=== PATIENT | female | born 1995 | race Caucasian/White ===

== ENCOUNTER 2023-09-29 20:17 | Emergency (ER) | payer MEDICAID, SELFPAY ==
--- NOTE | 2023-09-29 20:18 | ECG_ITS ---
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 Measurements Intervals Lipan Rate: 130 P: 64 NE: 133 QRS: 55 QRSD: 74 T: -19 QT: 333 QTc: 491 Interpretive Statements SINUS TACHYCARDIA NONSPECIFIC ST & T-WAVE ABNORMALITY No previous ECG available for comparison Electronically Signed On 09-30-2023 6:23:47 CDT by Miguel Ferreira M.D. [id number]
[2023-09-29 20:19] VITALS: BP 109/83; PULSE 123; RESP 24; TEMP 37.1; O2SAT 98
[2023-09-29 20:25] VITALS: BP 109/83
--- NOTE | 2023-09-29 20:40 | ED_ITS ---
HPI - Syncope General: Chief Complaint: Syncope Stated Complaint: syncope, anxiety Time Seen by Provider: 09/29/23 20:18 Source: patient and EMS Mode of arrival: EMS Limitations: no limitations History of Present Illness: 28-year-old female who states that she is having a bowel movement study on the toilet and felt lightheaded and syncopized. She had passed out for seconds she denies hitting her head when she awoke she was quite anxious per EMS she was extremely anxious on arrival I did give her Ativan she states she feels much improved she denies any headache or chest pain denies vomiting or diarrhea. Associated symptoms: Deny abdominal pain, chest pain, fever(s), headache(s) or nausea Review of Systems Const: Denies: fever(s), chills, body aches or change in appetite Eyes: Denies: blurry vision or eye discomfort ENMT: Denies: throat pain or dental pain Card: Reports: syncope; Denies: chest pain Resp: Denies: dyspnea GI: Denies: abdominal pain, nausea, vomiting or diarrhea Musc: Denies: neck pain or back pain Skin/Breast: Denies: rash Neuro: Denies: headache(s) Psych: Reports: anxiety PFSH ED PFSH: Social History Smoking and tobacco/nicotine status: never used tobacco/nicotine Alcohol intake: never Substance/Drug Use: never Physical Exam Const: COMMON NORMALS: no acute distress, patient oriented x3 and healthy appearing HENMT: COMMON NORMALS: normocephalic and atraumatic HEAD & SCALP: normocephalic and atraumatic Eye: COMMON NORMALS: Equal, round and reactive pupils present and EOMs intact bilaterally PUPIL: Yes Equal, round and reactive pupils present Neck/C-Spine: COMMON NORMALS: full ROM and supple Chest: COMMONS NORMALS: normal inspection of the chest and normal palpation of entire chest wall Resp: COMMON NORMALS: normal respiratory effort, No retractions, No use of accessory muscles and clear to auscultation bilaterally AUSCULTATION: clear to auscultation bilaterally Cardio: COMMON NORMALS: regular rhythm and No murmurs present (Cardio) RATE: tachycardic RHYTHM: regular rhythm GI: COMMON NORMALS: Normal to inspection, nondistended, normoactive bowel sounds present, Soft to palpation, non-tender and no masses PALPATION: Yes Soft to palpation Extremity: COMMON NORMALS: normal to inspection and full ROM Neuro: COMMON NORMALS: patient oriented x3, moves all extremities and no focal motor deficits Psych: COMMON NORMALS: mental status grossly normal, Normal thought process present and cooperative THOUGHT PROCESS: Normal thought process present Skin: COMMON NORMALS: no rashes or lesions noted and no wounds GENERAL SKIN EXAM: no rashes or lesions noted Course Vital Signs: Vital signs: Vital Signs Temperature 98.7 F 09/29/23 20:19 Pulse Rate 123 H 09/29/23 20:19 Respiratory Rate 24 H 09/29/23 20:19 Blood Pressure 109/83 09/29/23 20:19 Pulse Oximetry 98 09/29/23 20:19 Oxygen Delivery Me thod Room Air 09/29/23 20:19 MDM - Syncope Medical Decision Making Patient presents here with syncopal event patient's work-up here along with head CT are all normal she was a mild hypokalemia did give her potassium here she is to take supplementation at home she is to follow-up with PCP and return if worsening. Medical Records I reviewed the patient's medical records. Lab Data I reviewed the patient's lab results. 09/29/23 19:45 09/29/23 19:[address] 09/29/23 21:16 IMPRESSION: 1. No acute intracranial abnormality demonstrated. 2. There is no interval change from the prior examination. Laboratory Results WBC 10.26 10^3/uL (3.29-11.43) 09/29/23 19:45 RBC 4.18 10^6/uL (3.85-5.65) 09/29/23 19:45 Hgb 13.20 g/dL (11.27-16.99) 09/29/23 19:45 Hct 39.6 % (36-47) 09/29/23 19:45 MCV 94.7 fl (85-98) 09/29/23 19:45 MCH 31.6 pg (27-33) 09/29/23 19:45 MCHC 33.3 g/dL (30-55) 09/29/23 19:45 RDW 12.6 % (12.1-15.1) 09/29/23 19:45 Plt Count 443 10^3/cmm (157-399) H 09/29/23 19:45 MPV 10.6 fL (7.4-10.4) H 09/29/23 19:45 Neut % (Auto) 67.3 % 09/29/23 19:45 Lymph % (Auto) 23.3 % 09/29/23 19:45 [place] % (Auto) 7.4 % 09/29/23 19:45 Eos % (Auto) 1.1 % 09/29/23 19:45 Baso % (Auto) 0.5 % 09/29/23 19:45 Neut # (Auto) 6.91 10^3/uL (1.8-7.7) 09/29/23 19:45 Lymph # (Auto) 2.4 10^3/uL (0.8-4.8) 09/29/23 19:45 [place] # (Auto) 0.8 10^3/uL (0.2-0.9) 09/29/23 19:45 Eos # (Auto) 0.1 10^3/uL (0.0-0.8) 09/29/23 19:45 Baso # (Auto) 0.1 10^3/uL (0.0-0.1) 09/29/23 19:45 Nucleated RBC % (auto) 0 % 09/29/23 19:45 Nucleated RBCs # 0.0 /100WBC 09/29/23 19:45 Sodium 140 mmol/L (136-145) 09/29/23 19:45 Potassium 2.9 mmol/L (3.5-5.1) L 09/29/23 19:45 Chloride 102 mmol/L (98-107) 09/29/23 19:45 Carbon Dioxide 22 mmol/L (22-29) 09/29/23 19:45 Anion Gap 18.9 (5-19) 09/29/23 19:45 BUN 15 mg/dL (6-20) 09/29/23 19:45 Creatinine 0.6 mg/dL (0.5-0.9) 09/29/23 19:45 GFR Calculation 117.4 mL/min (90-130) 09/29/23 19:45 Glucose 102 mg/dL (65-115) 09/29/23 19:45 Calculated Osmolality 291 mOsm/kg (285-295) 09/29/23 19:45 Calcium 9.9 mg/dL (8.5-10.5) 09/29/23 19:45 Total Bilirubin 0.3 mg/dL (0.15-1.2) 09/29/23 19:45 AST 14 U/L (0-32) 09/29/23 19:45 ALT 16 U/L (0-33) 09/29/23 19:45 Alkaline Phosphatase 120 U/L (35-105) H 09/29/23 19:45 Total Protein 8.0 g/dL (6.6-8.7) 09/29/23 19:45 Albumin 4.8 g/dL (3.5-5.2) 09/29/23 19:45 Globulin 3.2 g/dL (1.3-4.6) 09/29/23 19:45 HCG, Qual Negative (Negative) 09/29/23 19:45 All radiology interpretation(s) finalized by discharge Discharge Plan Discharge Patient Disposition: Home Clinical Impression: Syncope Condition: Stable Prescriptions: No Action silver sulfadiazine [Silvadene] 1 % cream 1 applic topical BID Qty: 400 0RF Rx Instructions: apply a 1.5 mm thickness Apply after each hand washing to burn left hand Discharge Orders: Discharge ED (Routine); Ordered 09/29/23 Ordered By: Augustin Guzman Referrals: Cedric Wilkerson MD [Primary Care Provider] - 1-3 days Discharge Diet: Advance as tolerated Discharge Activity: Use walker/crutches as instructed Patient Instructions: Syncope (ED) Coding Level of Care Code ED Airplane Dispatcher for Rigo Mckeon
[2023-09-29 20:43] LABS: Basophils # 0.1 10^3/uL (0.0-0.1); Basophils % 0.5 %; Eosinophils # 0.1 10^3/uL (0.0-0.8); Eosinophils % 1.1 %; Hematocrit 39.6 % (36-47); Lymphocytes # 2.4 10^3/uL (0.8-4.8); Lymphocytes % 23.3 %; Mean Corpuscular HGB Conc 33.3 g/dL (30-55); Mean Corpuscular Hemoglobin 31.6 pg (27-33); Mean Corpuscular Volume 94.7 fl (85-98); Mean Platelet Volume 10.6 fL (7.4-10.4); Monocytes # 0.8 10^3/uL (0.2-0.9); Monocytes % 7.4 %; Neutrophils # 6.91 10^3/uL (1.8-7.7); Neutrophils % 67.3 %; Nucleated Red Blood Cells % 0 %; Platelet Count 443 10^3/cmm (157-399); Red Blood Count 4.18 10^6/uL (3.85-5.65); Red Cell Distribution Width 12.6 % (12.1-15.1); White Blood Count 10.26 10^3/uL (3.29-11.43)
[2023-09-29 20:46] LABS: Alanine Aminotransferase 16 U/L (0-33); Albumin Level 4.8 g/dL (3.5-5.2); Alkaline Phosphatase 120 U/L (35-105); Anion Gap 18.9 (5-19); Aspartate Amino Transferase 14 U/L (0-32); Blood Urea Nitrogen 15 mg/dL (6-20); Calcium 9.9 mg/dL (8.5-10.5); Carbon Dioxide 22 mmol/L (22-29); Chloride 102 mmol/L (98-107); Globulin 3.2 g/dL (1.3-4.6); Glomerular Filtration Rate 117.4 mL/min (90-130); Glucose 102 mg/dL (65-115); Osmolality Calculated 291 mOsm/kg (285-295); Sodium 140 mmol/L (136-145); Total Bilirubin 0.3 mg/dL (0.15-1.2)
[2023-09-29 20:47] LABS: HCG, Serum Qual Negative (Negative); Potassium 2.9 mmol/L (3.5-5.1)
[2023-09-29] MEDS: sodium chloride 0.9% 1,000 ML 999 ML IV (21:10)
[2023-09-29] MEDS: potassium chloride ER 20 mEq Tablet 40 MEQ PO (21:11)
--- NOTE | 2023-09-29 21:16 | CTR_ITS ---
PROCEDURE INFORMATION: Exam: CT Head Without Contrast Exam date and time: 09/29/2023 9:29 PM Age: 28 years old Clinical indication: Syncope and collapse TECHNIQUE: Imaging protocol: Computed tomography of the head without contrast. Radiation optimization: All CT scans at this facility use at least one of these dose optimization techniques: automated exposure control; mA and/or kV adjustment per patient size (includes targeted exams where dose is matched to clinical indication); or iterative reconstruction. REPORTING DATA: Count of CT and Cardiac NM exams in prior 12 months: This patient has received 0 known CTs and 0 known cardiac nuclear medicine studies in the 12 months prior to the current study. COMPARISON: CT head wo con* [id number] 03/31/2019 10:07 AM RADIATION DOSE METRICS: Total DLP (mGy-cm): 641 FINDINGS: Brain: No significant parenchymal volume loss. No parenchymal edema identified. No intracranial hemorrhage noted. 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 No hydrocephalus. Paranasal sinuses: Visualized sinuses are unremarkable. No air fluid levels. Mastoid air cells: Unremarkable as visualized. No mastoid effusion. Bones/joints: Unremarkable. No acute fracture. Soft tissues: Unremarkable. CT/CT head wo con* [id number] IMPRESSION: 1. No acute intracranial abnormality demonstrated. 2. There is no interval change from the prior examination.
[2023-09-29] MEDS: acetaminophen 325 mg Tablet 650 MG PO (22:38)
[2023-09-29 23:01] VITALS: O2SAT 100
== END 2023-09-29 23:13 | disposition home or self-care (01) ==
PROVIDERS: Emergency Provider Emergency Medicine; PCP Family Medicine
DX: R55 Syncope and collapse (principal)
CPT/HCPCS: 70450; 80053; 84703; 85025; 93005; 96360; 99285; J7030

== ENCOUNTER 2025-11-26 10:25 | Emergency (ER) | payer MEDICAID, SELFPAY ==
[2025-11-26 10:26] VITALS: BP 117/83; PULSE 118; TEMP 36.8; O2SAT 99
--- OUTSIDE RECORDS SUMMARY | 2025-11-26 10:37 | XMS_ITS | Clinical Summary ---
Author Organization [facility] Address [address] 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
--- OUTSIDE RECORDS SUMMARY | 2025-11-26 10:37 | XMS_ITS | Encounter Summary ---
Author Organization [facility] Address [address] [place] [address] Care Team Providers Care Foundation Relations Manager Name Role Phone Unavailable Primary Care Provider Unavailabl e Encounter Details Date Type Department Care Team (Latest Contact Info) Description 07/29/2000 Outpatient Historical [facility] Ear, Nose and Throat 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
--- OUTSIDE RECORDS SUMMARY | 2025-11-26 10:37 | XMS_ITS | Encounter Summary ---
Author Organization [facility] Address [address] [place] [address] Care Team Providers Care Leather Production Worker Name Role Phone Unavailable Primary Care Provider Unavailabl e Encounter Details Date Type Department Care Team (Late st Contact Info) Description 07/29/2000 Outpatient Historical [facility] Ear, Nose and Throat 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
--- NOTE | 2025-11-26 11:00 | CT_ITS ---
WS: [id number] CT FACIAL BONES TECHNIQUE: Noncontrast facial bones with coronal and sagittal reformatted images. CLINICAL INFORMATION: Trauma COMPARISON: None. DLP: 1209.[address] scans at [facility] use at least one of these dose optimization techniques: automated exposure control; mA and/or kV adjustment per patient size (includes targeted exams where dose is matched to clinical indication); or iterative reconstruction. FINDINGS: Bilateral nasal bone fractures with mild depression on the RIGHT. Distal nasal tuft fractures slightly depressed on the LEFT. Associated soft tissue edema. Small amount of fluid and blood products in the RIGHT maxillary sinus. Zygoma appear normal. Lateral orbits appear normal. Normal lamina papyracea. CT/CT facial bones wo con* [id number] IMPRESSION: Bilateral nasal bone and distal nasal tuft fractures slightly depressed on the RIGHT proximally and LEFT distally at the nasal tuft
--- NOTE | 2025-11-26 11:00 | CT_ITS ---
WS: [id number] CT HEAD TECHNIQUE: Noncontrast CT of the head obtained from the skullbase to the vertex. CLINICAL INFORMATION: Head trauma COMPARISON: 2022 DLP: 1209.[address] scans at [facility] use at least one of these dose optimization techniques: automated exposure control; mA and/or kV adjustment per patient size (includes targeted exams where dose is matched to clinical indication); or iterative reconstruction. FINDINGS: No evidence of intracranial hemorrhage or mass effect. Chronic dilatation of the posterior horn lateral ventricles and temporal horns likely developmental unchanged. No extra-axial fluid collections. No evidence of mass or mass effect. Normal june-white differentiation. Trace fluid RIGHT maxillary sinus. Mastoid air cells are well aerated. CT/CT head wo con* [id number] IMPRESSION: 1. No evidence of intracranial hemorrhage or mass effect. 2. 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 No acute intracranial findings.
[2025-11-26 11:36] LABS: Hematocrit 40.8 % (36-47); Hemoglobin 13.00 g/dL (11.27-16.99); Mean Corpuscular HGB Conc 31.9 g/dL (30-55); Mean Corpuscular Hemoglobin 30.2 pg (27-33); Mean Corpuscular Volume 94.9 fl (85-98); Nucleated Red Blood Cells % 0 %; Platelet Count 503 10^3/cmm (157-399); Red Blood Count 4.30 10^6/uL (3.85-5.65); White Blood Count 15.01 10^3/uL (3.29-11.43)
[2025-11-26 11:57] LABS: Lactic Sepsis W/Reflex 1.6 mmol/L (0.5-2.2)
[2025-11-26 11:58] LABS: Alanine Aminotransferase 20 U/L (0-33); Albumin Level 4.4 g/dL (3.5-5.2); Alkaline Phosphatase 138 U/L (35-105); Anion Gap 17.0 (5-19); Aspartate Amino Transferase 18 U/L (0-32); Blood Urea Nitrogen 18 mg/dL (6-20); Calcium 9.1 mg/dL (8.5-10.5); Carbon Dioxide 24 mmol/L (22-29); Chloride 101 mmol/L (98-107); Globulin 3.1 g/dL (1.3-4.6); Glucose 115 mg/dL (65-115); Osmolality Calculated 289 mOsm/kg (285-295); Potassium 4.0 mmol/L (3.5-5.1); Sodium 138 mmol/L (136-145); Total Protein 7.5 g/dL (6.6-8.7)
[2025-11-26 12:20] VITALS: BP 129/80; O2SAT 98
--- NOTE | 2025-11-26 12:31 | ED_ITS ---
HPI - Head Injury 2 General: Chief complaint: Head Injury Stated complaint: seizure, fell hit face Time Seen by Provider: 11/26/25 12:09 Source: patient and family Mode of arrival: ambulatory Limitations: no limitations History of Present Illness: Patient is a 30-year-old female presents to ED today along with family for evaluation of a seizure. Family states she was in the bathroom and they heard her fall. When they responded to her, she was experiencing tonic-clonic like movements consistent with a seizure. She reportedly bit her cheek. No episodes of incontinence. Was slightly postictal following event. Family states she has had approximately 6-8 similar episodes over the past 2 years. They state they keep getting told it is either secondary to dehydration or her potassium or her soda drinking . Family states she has never seen a neurologist nor she on seizure medication. Parent states she did strike her nose during the fall and initially had epistaxis but this is resolved. No other injuries or complaints at this time. Patient is alert and appropriate and at mental baseline during my examination with her. MD Complaint: other (facial injury/seizure) Onset (ago): hour(s) Mechanism of Injury: other (seizure/fall) Place: home Location of injury: face Severity: mild Radiation: none Other Injuries: none Associated symptoms: Deny confusion, nausea, neck pain, syncope, vertigo or vomiting Related Data Previous Rx's ?Medication ?Instructions ?Recorded silver sulfadiazine 1 % topical 1 applic topical BID # 400 grams 11/30/20 cream (Silvadene) levetiracetam 500 mg tablet 500 mg PO BID #60 tabs (Keppra) Allergies Allergy/AdvReac Type Severity Reaction Status Date / Time Sulfa (Sulfonamide Allergy rash Verified 11/26/25 10:38 Antibiotics) Review of Systems 2 Const: Denies: fever(s) or chills Eyes: Denies: change in vision or blurry vision ENMT: Reports: other (nose pain following fall) Card: Denies: chest pain, palpitations, irregular heart rhythm, lightheadedness, syncope or dyspnea on exertion Resp: Denies: dyspnea, productive cough or pain on inspiration GI: Denies: abdominal pain, nausea, vomiting, heartburn or diarrhea : Denies: dysuria Musc: Denies: neck pain, back pain or joint pain Skin/Breast: Denies: rash Neuro: Reports: seizure-like activity; Denies: headache(s), numbness in extremities, weakness in extremities, sensory changes, difficulty walking, frequent falls, dizziness, vertigo, confusion or behavioral changes PFSH ED 2 PFSH: Social History Smoking and tobacco/nicotine status: never used tobacco/nicotine Alcohol intake: never Substance/Drug Use: never Physical Exam 2 Const: COMMON NORMALS: no acute distress, average body habitus, patient oriented x3, no limitations, alert and well nourished GENERAL APPEARANCE: c ooperative ORIENTATION/CONSCIOUSNESS: Yes awake, Yes oriented to person and Yes oriented to place HENMT: COMMON NORMALS: normocephalic and atraumatic HEAD & SCALP: normal to inspection, normocephalic and atraumatic FACE & SINUS: other (congenital dysmorphic facial appearance ) NOSE: Normal septum present and Other nasal findings present (nasal contusion; dried blood to nares; no septal hematoma) MOUTH: lip normal, tongue normal, Normal salivary glands and ducts present and other (R buccal contusion from biting during seizure) TEETH & GINGIVA: Yes edentulous (mostly-several metal fillings present) THROAT: posterior oropharynx normal and tonsils normal Eye: GENERAL EYE: appearance normal, both eyes and all related structures Neck/C-Spine: COMMON NORMALS: full ROM, no lymphadenopathy, supple and no meningeal signs Chest: COMMONS NORMALS: normal inspection of the chest Resp: COMMON NORMALS: normal respiratory effort and clear to auscultation bilaterally AUSCULTATION: clear to auscultation bilaterally Cardio: COMMON NORMALS: regular rate and regular rhythm RATE: regular rate RHYTHM: regular rhythm GI: COMMON NORMALS: Normal to inspection, nondistended, normoactive bowel sounds present, Soft to palpation, non-tender, No hepatosplenomegaly present and no masses PALPATION: Yes Soft to palpation and Yes No hepatosplenomegaly present : COMMON NORMALS: Yes no CVA tenderness BLADDER/KIDNEY EXAM: Yes no CVA tenderness Back/Pelvis: COMMON NORMALS: no CVA tenderness and thoracic and lumbar spine normal to inspection Extremity: COMMON NORMALS: normal to inspection GENERAL: Yes normal exam except as noted Neuro: EDDIE COMA SCALE: document GCS findings Wolcott coma scale eye opening: Spontaneous Eddie coma scale verbal response: Orientated Wolcott coma scale motor response: Obey commands Eddie coma scale total score: 15 COMMON NORMALS: patient oriented x3, moves all extremities, no focal motor deficits, no sensory deficits noted and gait normal SENSORIUM/ORIENTATION: Yes alert, Yes oriented to person and Yes oriented to place MENINGEAL SIGNS: Yes no meningeal signs Skin: COMMON NORMALS: no rashes or lesions noted GENERAL SKIN EXAM: no rashes or lesions noted Course 2 Vital Signs: Vital signs: Vital Signs Temperature 98.2 F 11/26/25 10:26 Pulse Rate 118 H 11/26/25 10:26 Blood Pressure 129/80 11/26/25 12:44 Pulse Oximetry 97 11/26/25 12:44 Oxygen Delivery Me thod Room Air 11/26/25 10:26 MDM - Head Injury Medcial Decision Making Patient here following a witnessed seizure. Parents states she has had approximately 6-8 seizures over the past 2 years. Unknown why she has not seen a neurologist or started on antiepileptic medication. She will be provided a loading dose of IV Keppra prior to discharge and will start on oral Keppra. Will place a case management referral to get her seen by a neurologist. She will also need follow-up with ENT regarding her nasal bone fracture that she sustained during her seizure today. Return to ED precautions discussed. Lab Data 11/26/25 11:30 11/26/25 11:[address] 11/26/25 11:00 IMPRESSION: Bilateral nasal bone and distal nasal tuft fractures slightly depressed on the RIGHT proximally and LEFT distally at the nasal tuft Head CT 11/26/25 11:00 IMPRESSION: 1. No evidence of intracranial hemorrhage or mass effect. 2. 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 No acute intracranial findings. Laboratory Results WBC 15.01 10^3/uL (3.29-11.43) H 11/26/25 11:30 RBC 4.30 10^6/uL (3.85-5.65) 11/26/25 11:30 Hgb 13.00 g/dL (11.27-16.99) 11/26/25 11:30 Hct 40.8 % (36-47) 11/26/25 11:30 MCV 94.9 fl (85-98) 11/26/25 11:30 MCH 30.2 pg (27-33) 11/26/25 11:30 MCHC 31.9 g/dL (30-55) 11/26/25 11:30 RDW 13.2 % (12.1-15.1) 11/26/25 11:30 Plt Count 503 10^3/cmm (157-399) H 11/26/25 11:30 MPV 10.0 fL (7.4-10.4) 11/26/25 11:30 Neut % (Auto) 88.4 % 11/26/25 11:30 Lymph % (Auto) 6.2 % 11/26/25 11:30 [place] % (Auto) 4.3 % 11/26/25 11:30 Eos % (Auto) 0.3 % 11/26/25 11:30 Baso % (Auto) 0.4 % 11/26/25 11:30 Neut # (Auto) 13.27 10^3/uL (1.8-7.7) H 11/26/25 11:30 Lymph # (Auto) 0.9 10^3/uL (0.8-4.8) 11/26/25 11:30 [place] # (Auto) 0.6 10^3/uL (0.2-0.9) 11/26/25 11:30 Eos # (Auto) 0.1 10^3/uL (0.0-0.8) 11/26/25 11:30 Baso # (Auto) 0.1 10^3/uL (0.0-0.1) 11/26/25 11:30 Nucleated RBC % (auto) 0 % 11/26/25 11:30 Nucleated RBCs # 0.0 /100WBC 11/26/25 11:30 Sodium 138 mmol/L (136-145) 11/26/25 11:30 Potassium 4.0 mmol/L (3.5-5.1) 11/26/25 11:30 Chloride 101 mmol/L (98-107) 11/26/25 11:30 Carbon Dioxide 24 mmol/L (22-29) 11/26/25 11:30 Anion Gap 17.0 (5-19) 11/26/25 11:30 BUN 18 mg/dL (6-20) 11/26/25 11:30 Creatinine 0.6 mg/dL (0.5-0.9) 11/26/25 11:30 GFR Calculation 115.9 mL/min (90-130) 11/26/25 11:30 Glucose 115 mg/dL (65-115) 11/26/25 11:30 Calculated Osmolality 289 mOsm/kg (285-295) 11/26/25 11:30 Lactic Acid 1.6 mmol/L (0.5-2.2) 11/26/25 11:30 Calcium 9.1 mg/dL (8.5-10.5) 11/26/25 11:30 Total Bilirubin 0.4 mg/dL (0.15-1.2) 11/26/25 11:30 AST 18 U/L (0-32) 11/26/25 11:30 ALT 20 U/L (0-33) 11/26/25 11:30 Alkaline Phosphatase 138 U/L (35-105) H 11/26/25 11:30 Total Protein 7.5 g/dL (6.6-8.7) 11/26/25 11:30 Albumin 4.4 g/dL (3.5-5.2) 11/26/25 11:30 Globulin 3.1 g/dL (1.3-4.6) 11/26/25 11:30 All radiology interpretation(s) finalized by discharge Discharge Plan Discharge Patient Disposition: Home Clinical Impression: Seizure Closed fracture nasal bone Qualifiers: Encounter type: initial encounter Qualified Code(s): S02.2XXA - Fracture of nasal bones, initial encounter for closed fracture Condition: Stable Prescriptions: New levetiracetam [Keppra] 500 mg tablet 500 mg PO BID Qty: 60 0RF No Action silver sulfadiazine [Silvadene] 1 % cream 1 applic topical BID Qty: 400 0RF Rx Instructions: apply a 1.5 mm thickness Apply after each hand washing to burn left hand Discharge Orders: Discharge ED (Routine); Ordered 11/26/25 Ordered By: Diana Anderson Referrals: Cedric Wilkerson MD [Primary Care Provider, Family Practice] Patient Instructions: Epilepsy (DC), New-Onset Seizure in Adults (ED), Patient Portal & Clement Instructions, Seizures Activity Restrictions/Additional Instructions: Patient's blood work here was unremarkable. Head CT was normal. Facial bone CT did show nasal fracture that she will require ENT follow-up for. Case management should contact you to help set you up with this follow-up appointment. I think it is reasonable to start her on seizure medications-this medication has been called into her pharmacy on file. She will also require follow-up with neurology. Case management will also contact you regarding this appointment. She can continue to follow-up with primary care in the meantime. You may return to the emergency department for any further concerns you may have. Print Language: Trinidadian Coding Level of Care Code ED Sales Representative Livestock for Rigo Mckeon
[2025-11-26 12:44] VITALS: BP 129/80; O2SAT 97
[2025-11-26] MEDS: levETIRAcetam 1,000 MG/100 ML PREMIX 400 MG IV (12:58)
[2025-11-26 13:27] VITALS: BP 123/83; PULSE 91; O2SAT 98
--- NOTE | 2025-11-29 18:17 | DCPLANNER ---
Patient seen in the ER on: 11/26/2025 Referral requested for: ENT Diagnosis: Nasal fracture Referral was sent to: Dr. Alejandro Sent to fax # [phone]
== END 2025-11-26 13:28 | disposition home or self-care (01) ==
PROVIDERS: Family Medicine; Emergency Provider Physician Assistant; PCP Family Medicine
DX: R56.9 Unspecified convulsions (principal); S02.2XXA Fracture of nasal bones, initial encounter for closed fracture; W19.XXXA Unspecified fall, initial encounter
CPT/HCPCS: 36415; 70450; 70486; 80053; 83605; 85025; 96374; 99285; J1953